=== PATIENT | male | born 1980 | race Caucasian/White ===

== ENCOUNTER 2017-07-22 14:57 | Observation (INO) | payer OTHER ==
[~2017-07-22] VITALS: Ht 193.2 cm; Wt 115.3 kg
[2017-07-22] MEDS ORDERED: EPA FISH OIL1 SGL PO (15:08)
[2017-07-22] MEDS ORDERED: TRICOR 48MG48 MG PO (15:08)
[2017-07-22] MEDS ORDERED: ZYLOPRIM 100MG100 MG PO (15:08)
[2017-07-22 16:26] LABS: BASO # 0.1 (0.0-0.2); BASO % 0.4 % (0.0-2.0); EOS # 0.1 (0.0-0.7); EOS % 0.4 % (0-4.0); GRAN # 11.4 (1.4-6.5); GRAN % 78.4 % (42.2-75.2); HEMATOCRIT 46.1 % (42.0-52.0); HEMOGLOBIN 16.5 g/dl (13.5-18.0); LYMPH # 1.9 (1.2-3.4); MEAN CELL VOLUME 84 fl (80.0-100.0); MEAN CORPUSCULAR HEMOGLOBIN 30 pg (27.0-31.0); MEAN CORPUSCULAR HGB CONC 36 g/dl (33.0-37.0); MEAN PLATELET VOLUME 10.4 fl (7.4-10.4); MONO # 1.1 (0.1-0.6); MONO % 7.3 % (1.7-9.3); PLATELET COUNT 175 K/mm3 (130-400); RED BLOOD COUNT 5.52 M/mm3 (4.20-5.60); WHITE BLOOD COUNT 14.6 K/mm3 (4.8-10.8)
[2017-07-22 16:39] LABS: ADJUSTED CALCIUM 9.3 mg/dL (8.4-10.2); ALANINE AMINOTRANSFERASE 53 U/L (21-72); ALBUMIN 4.5 gm/dL (3.5-5.0); ALKALINE PHOSPHATASE 72 U/L (50-136); ANION GAP 12 mmol/L (7-16); BILIRUBIN,TOTAL 0.8 mg/dL (0.0-1.0); BLOOD UREA NITROGEN 14 mg/dL (9-20); CALCIUM 9.7 mg/dL (8.4-10.2); CARBON DIOXIDE 22 mmol/L (22-30); CHLORIDE 104 mmol/L (98-107); CREATININE, serum 0.86 mg/dL (0.66-1.25); GLUCOSE 86 mg/dL (74-106); LIPASE 71 U/L (23-300); POTASSIUM 3.8 mmol/L (3.4-5.0); SODIUM 139 mmol/L (137-145); TOTAL PROTEIN 7.2 gm/dL (6.4-8.2)
[2017-07-22 16:49] LABS: TROPONIN-I < 0.012 ng/mL (0.000-0.034)
[2017-07-22 17:09] LABS: COLLECTION METHOD CLEAN CATCH
[2017-07-22 17:57] LABS: MUCOUS Present /lpf; PH 6 (5-8); SQUAMOUS EPITHELIAL 0-2 /hpf; URINE APPEARANCE Clear; URINE BACTERIA None Seen /hpf; URINE BILIRUBIN Negative (NEGATIVE); URINE BLOOD Negative (NEGATIVE); URINE COLOR Amber; URINE GLUCOSE Negative (NEGATIVE); URINE KETONE Trace (NEGATIVE); URINE LEUKOCYTE ESTERASE Negative (NEGATIVE); URINE PROTEIN(semi-quant) 2+ (NEGATIVE); URINE RBC 0-2 /hpf
[2017-07-22 21:56] VITALS: BP 118/72; PULSE 76; TEMP 98
[2017-07-22 22:42] VITALS: BP 118/72; PULSE 76; TEMP 98
[2017-07-23] VITALS (10 sets, daily range): BP systolic 115–133; BP diastolic 59–80; PULSE 62–87; TEMP 98.2–98.8
[2017-07-23] MEDS ORDERED: NORCO 325 MG-7.1 TAB PO (11:09)
== END 2017-07-23 12:00 | disposition home or self-care (01) ==
LOC: COL.ER 14:57 → SURG 17:47
PROVIDERS: Physician Assistant
DX: K35.80 Unspecified acute appendicitis (principal); G47.30 Sleep apnea, unspecified; M10.9 Gout, unspecified; E78.1 Pure hyperglyceridemia
CPT/HCPCS: J0694; J1100; J1170; J2270; J2300; J2405; J2704; J2710; J3010; J7030; J7050; J7120; Q9967

== ENCOUNTER 2021-05-29 09:12 | Emergency (ER) | payer OTHER ==
[~2021-05-29] VITALS: Ht 193 cm; Wt 136.4 kg
[~2021-05-29 09:12] MED LIST: EPA FISH OIL1 SGL PO; NORCO 325 MG-7.1 TAB PO; TRICOR 48MG48 MG PO; ZYLOPRIM 100MG100 MG PO
[2021-05-29 10:05] VITALS: TEMP 97.6
[2021-05-29] MEDS ORDERED: NEURONTIN300 MG/CAP PO (11:06)
[2021-05-29 12:07] LABS: BASO % 0.3 % (0.0-2.0); EOS # 0.1 (0.0-0.7); EOS % 1.5 % (0-4.0); GRAN # 4.4 (1.4-6.5); GRAN % 57.7 % (42.2-75.2); HEMOGLOBIN 17.4 g/dl (13.5-18.0); LYMPH # 2.5 (1.2-3.4); LYMPH % 33.3 % (20.0-51.0); MEAN CELL VOLUME 86 fl (80.0-100.0); MEAN CORPUSCULAR HEMOGLOBIN 31 pg (27.0-31.0); MEAN CORPUSCULAR HGB CONC 36 g/dl (33.0-37.0); MEAN PLATELET VOLUME 10.4 fl (7.4-10.4); MONO # 0.5 (0.1-0.6); MONO % 6.9 % (1.7-9.3); PLATELET COUNT 174 K/mm3 (130-400); RED BLOOD COUNT 5.71 M/mm3 (4.20-5.60); REDCELL DISTRIBUTION WIDTH-CV 12.9 % (11.5-14.5)
[2021-05-29 12:17] LABS: ALANINE AMINOTRANSFERASE 34 U/L (4-49); ALBUMIN 4.4 gm/dL (3.5-5.0); ALKALINE PHOSPHATASE 84 U/L (50-136); ANION GAP 9 mmol/L (7-16); AST,SGOT 27 U/L (15-37); BLOOD UREA NITROGEN 16 mg/dL (9-20); CALCIUM 9.1 mg/dL (8.4-10.2); CARBON DIOXIDE 23 mmol/L (22-30); CHLORIDE 107 mmol/L (98-107); CREATININE, serum 0.73 (0.66-1.25); GLUCOSE 104 mg/dL (74-106); POTASSIUM 4.2 mmol/L (3.4-5.0); SODIUM 138 mmol/L (137-145); TOTAL PROTEIN 7.4 gm/dL (6.4-8.2)
[2021-05-29 12:22] LABS: C-REACTIVE PROTEIN < 0.5 mg/dL (0.0-0.9)
[2021-05-29 12:44] LABS: ERYTHROCYTE SEDIMENTATION RATE 1 mm/hr (0-15)
[2021-05-29] MEDS ORDERED: PERCOCET 325 MG1 TA2 PO (16:56)
[2021-05-29] MEDS ORDERED: FLEXERIL 1010 MG/TAB PO (17:12)
[2021-05-29 17:28] VITALS: BP 119/79; PULSE 75
== END 2021-05-29 17:30 | disposition home or self-care (01) ==
LOC: COL.ER 09:12
PROVIDERS: Nurse Practitioner Family
DX: M48.061 Spinal stenosis, lumbar region without neurogenic claudication (principal); F17.210 Nicotine dependence, cigarettes, uncomplicated
CPT/HCPCS: A9585